=== PATIENT | male | born 1970 | race Caucasian/White ===

== ENCOUNTER 2016-10-31 12:45 | Outpatient (RCR) | payer OTHER ==
[~2016-10-31 12:45] MED LIST: ACIDOPHILUS PO; ASPIRIN E.C.325 MG PO; CELEXA40 MG PO; CHANTIX 1MG1 MG; CHOLESTEROL MED; DESYREL 50MG50 MG PO; PREDNISONE10 MG PO
== END 2016-11-02 | disposition home or self-care (01) ==
LOC: WSC
DX: F07.81 Postconcussional syndrome (principal)

== ENCOUNTER 2016-12-12 12:45 | Outpatient (RCR) | payer OTHER | END 2016-12-16 18:05 | disposition home or self-care (01) | LOC: WSC 12:45 | DX: F07.81 Postconcussional syndrome (principal); X58.XXXD Exposure to other specified factors, subsequent encounter ==

== ENCOUNTER 2017-01-23 08:15 | Outpatient (RCR) | payer OTHER | END 2017-04-07 | LOC: WSPT | DX: F07.81 Postconcussional syndrome (principal); R25.9 Unspecified abnormal involuntary movements ==

== ENCOUNTER → 2017-03-06 | Outpatient (CLI) | payer OTHER | LOC: COL.RAD 09:55 | DX: R74.8 Abnormal levels of other serum enzymes (principal) ==

== ENCOUNTER 2017-03-13 11:43 | Outpatient (RCR) | payer OTHER | END 2017-04-16 15:10 | LOC: WSPT 11:43 | DX: F07.81 Postconcussional syndrome (principal) ==

== ENCOUNTER 2017-10-19 15:45 | Outpatient (RCR) | payer OTHER | END 2017-11-11 | LOC: WSPT | DX: H83.2X9 Labyrinthine dysfunction, unspecified ear (principal); F07.81 Postconcussional syndrome ==

== ENCOUNTER → 2018-11-10 | Outpatient (CLI) | payer OTHER | LOC: COL.RAD 11:30 | DX: F07.81 Postconcussional syndrome (principal); G43.719 Chronic migraine without aura, intractable, without status migrainosus; R27.0 Ataxia, unspecified; M47.812 Spondylosis without myelopathy or radiculopathy, cervical region ==

== ENCOUNTER → 2018-12-14 | Outpatient (CLI) | payer OTHER | LOC: COL.CARD 13:00 | DX: F07.81 Postconcussional syndrome (principal); G43.719 Chronic migraine without aura, intractable, without status migrainosus; R42 Dizziness and giddiness; R41.89 Other symptoms and signs involving cognitive functions and awareness; M54.2 Cervicalgia ==

== ENCOUNTER 2021-06-27 10:54 | Outpatient (CLI) | payer OTHER ==
[~2021-06-27] VITALS: Ht 180.3 cm; Wt 65.9 kg
[2021-06-27] VITALS (7 sets, daily range): BP systolic 114–142; BP diastolic 74–89; PULSE 58–65; TEMP 97.6
[2021-06-27] MEDS ORDERED: LIPITOR 40MG TA40 MG PO (12:02)
[2021-06-27] MEDS ORDERED: NICORETTE4 M1 MM (12:03)
[2021-06-27] MEDS ORDERED: BETAMETHASONE O15 GM TP (12:03)
[2021-06-27] MEDS ORDERED: MYSOLINE 250MG250 MG PO (12:04)
[2021-06-27] MEDS ORDERED: VIAGRA100 M1 PO (12:04)
[2021-06-27] MEDS ORDERED: TOPAMAX 100MG100 M1 PO (12:05)
[2021-06-27] MEDS ORDERED: INDERAL40 MG PO (12:05)
--- NOTE | 2021-06-27 13:30 | NUR ---
Pt tolerated infusion and 1 hr obs period without issue. INT DC'd with catheter intact. Pt escorted out to ED entrance with steady gait.
== END 2021-06-27 13:30 | disposition home or self-care (01) ==
LOC: EUO 10:54
DX: U07.1 COVID-19 (principal); J98.4 Other disorders of lung
CPT/HCPCS: M0245

== ENCOUNTER 2021-07-03 15:32 | Emergency (ER) | payer OTHER ==
[~2021-07-03] VITALS: Ht 177.8 cm; Wt 68.2 kg
[~2021-07-03 15:32] MED LIST changes: +BETAMETHASONE O15 GM TP; +INDERAL40 MG PO; +LIPITOR 40MG TA40 MG PO; +MYSOLINE 250MG250 MG PO; +NICORETTE4 M1 MM; +TOPAMAX 100MG100 M1 PO; +VIAGRA100 M1 PO
[2021-07-03 15:55] VITALS: TEMP 98.2
[2021-07-03] MEDS ORDERED: PREDNISONE20 MG PO (17:06)
[2021-07-03 17:43] VITALS: BP 128/61; PULSE 79
== END 2021-07-03 17:40 | disposition home or self-care (01) ==
LOC: COL.ER 15:32
DX: U07.1 COVID-19 (principal); J45.909 Unspecified asthma, uncomplicated; F17.210 Nicotine dependence, cigarettes, uncomplicated

== ENCOUNTER 2021-07-11 23:23 | Observation (INO) | payer OTHER ==
[~2021-07-11] VITALS: Ht 177.8 cm; Wt 64.5 kg
[~2021-07-11 23:23] MED LIST changes: +PREDNISONE20 MG PO
[2021-07-12 00:08] LABS: HEMOGLOBIN 14.7 g/dl (13.5-18.0); MEAN CELL VOLUME 90 fl (80.0-100.0); MEAN CORPUSCULAR HEMOGLOBIN 32 pg (27-31); MEAN CORPUSCULAR HGB CONC 35 g/dl (33.0-37.0); PLATELET COUNT 424 K/mm3 (130-400); RED BLOOD COUNT 4.65 M/mm3 (4.20-5.60); REDCELL DISTRIBUTION WIDTH-CV 14.6 % (11.5-14.5)
[2021-07-12 00:37] LABS: BAND 2 % (0-10); LYMPHOCYTE 13 % (20.0-51.0); NEUTROPHILS 75 % (42.0-75.2)
[2021-07-12 00:42] LABS: ALANINE AMINOTRANSFERASE 43 U/L (0-55); ALBUMIN 3.5 gm/dL (3.5-5.0); ALKALINE PHOSPHATASE 106 U/L (40-150); ANION GAP 15 mmol/L (7-16); AST,SGOT 19 U/L (5-34); BILIRUBIN,TOTAL 0.4 mg/dL (0.2-1.2); BLOOD UREA NITROGEN 11 mg/dL (8-26); CALCIUM 9.2 mg/dL (8.4-10.2); CARBON DIOXIDE 22 mmol/L (22-29); CHLORIDE 105 mmol/L (98-107); CREATININE, serum 0.88 mg/dL (0.72-1.25); GLUCOSE 161 mg/dL (70-99); POTASSIUM 3.2 mmol/L (3.5-4.5); SODIUM 142 mmol/L (136-145)
[2021-07-12 00:45] LABS: ARTERIAL BLD GAS O2 SATURATION 98.3 % (92-100); ARTERIAL BLD GAS TCO2 CT 24.2; ARTERIAL BLOOD GAS BASE EXCESS 3.7 (-2-2); ARTERIAL BLOOD GAS HCO3 23.4 meq/L (22-26)
[2021-07-12 00:46] LABS: ARTERIAL BLOOD GAS PCO2 23.9 mmHg (35-45); ARTERIAL BLOOD GAS pH 7.61 (7.35-7.45)
[2021-07-12 00:51] LABS: TROPONIN-I < 0.010 ng/mL (0.00-0.033)
[2021-07-12 03:44] VITALS: BP 143/80; PULSE 80; TEMP 97.2
--- NOTE | 2021-07-12 04:23 | NUR ---
Patient arrived medical floor room 317 from ER around 3 am. Patient alert and oriented. Patient currently on room air. SPO2 96% on room air. Breathing slightly labored and tachypnic. RR 24. Patient reports he tested positive for Covid on 06/25 and since then having SOB, cough, and burning chest pain with cough. Patient denies N/V or diarrhea. Oriented patient to the room. K+ 3.2 and replaced per SEP. Call light in reach. Will continue to monitor.
[2021-07-12 07:35] LABS: HEMATOCRIT 39.8 % (42.0-52.0); HEMOGLOBIN 13.6 g/dl (13.5-18.0); MEAN CELL VOLUME 92 fl (80.0-100.0); MEAN CORPUSCULAR HEMOGLOBIN 31 pg (27-31); MEAN CORPUSCULAR HGB CONC 34 g/dl (33.0-37.0); MEAN PLATELET VOLUME 9.2 fl (7.4-10.4); PLATELET COUNT 368 K/mm3 (130-400); RED BLOOD COUNT 4.34 M/mm3 (4.20-5.60); REDCELL DISTRIBUTION WIDTH-CV 14.6 % (11.5-14.5)
[2021-07-12 08:00] LABS: CALCIUM 8.6 mg/dL (8.4-10.2); CREATININE, serum 0.75 mg/dL (0.72-1.25); POTASSIUM 3.9 mmol/L (3.5-4.5)
[2021-07-12 08:32] VITALS: BP 134/88; PULSE 77; TEMP 97.7
[2021-07-12 09:06] LABS: LYMPHOCYTE 16 % (20.0-51.0); NEUTROPHILS 80 % (42.0-75.2); PLATELET ESTIMATE NORMAL (NORMAL)
[2021-07-12 11:28] VITALS: BP 122/86; PULSE 76; TEMP 97.9
[2021-07-12] MEDS ORDERED: PREDNISONE20 MG PO (12:30)
[2021-07-12] MEDS ORDERED: PROAIR HFA0.09 MG/AC IH (12:31)
--- NOTE | 2021-07-12 12:39 | NUR ---
PT DENIES ANY ISSUES AT THIS TIME. ASSESSMENT COMPLETED. PT IS GOING TO DISCHARGE HOME.
== END 2021-07-12 13:50 | disposition home or self-care (01) ==
LOC: COL.ER 23:23 → MEDICAL 07-12 01:53
PROVIDERS: Emergency Medicine; Student in an Organized Health Care Education/Training Program; ADMIT Student in an Organized Health Care Education/Training Program
DX: J96.00 Acute respiratory failure, unspecified whether with hypoxia or hypercapnia (principal); J40 Bronchitis, not specified as acute or chronic; E78.5 Hyperlipidemia, unspecified; K21.9 Gastro-esophageal reflux disease without esophagitis; K76.9 Liver disease, unspecified; S06.9X0A Unspecified intracranial injury without loss of consciousness, initial encounter; D72.829 Elevated white blood cell count, unspecified; E87.6 Hypokalemia; G43.909 Migraine, unspecified, not intractable, without status migrainosus; G25.2 Other specified forms of tremor; F17.210 Nicotine dependence, cigarettes, uncomplicated; Z79.899 Other long term (current) drug therapy
CPT/HCPCS: G0378; J2060; J2920; J2930; J7030; Q9967

== ENCOUNTER → 2021-07-24 | Outpatient (CLI) | payer OTHER ==
[~2021-07-24] MED LIST changes: +PROAIR HFA0.09 MG/AC IH
== END ==
LOC: COL.RAD 07:34
DX: K76.9 Liver disease, unspecified (principal)
CPT/HCPCS: Q9967